=== PATIENT | male | born 1945 | race Two or more races ===

== ENCOUNTER 2021-10-06 11:27 | Inpatient (IN) | payer BC, OTHER ==
[~2021-10-06] VITALS: Ht 177.8 cm; Wt 71.0 kg
[2021-10-06 12:13] LABS: Albumin 2.2 g/dL (3.4-5.0); Magnesium 2.4 mg/dL (1.6-2.6); Potassium 3.8 mmol/L (3.5-5.1)
[2021-10-06 12:25] LABS: Basophils # (auto) 0 10 ^3/uL (0-0.2); Eosinophils # (auto) 0 10 ^3/uL (0-0.8); Hematocrit 20.6 % (41.0-53.0); Mean Corpuscular Volume 93.8 fL (80.0-100.0); Monocytes # (auto) 0.4 10 ^3/uL (0-1.3)
[2021-10-06 12:26] LABS: Basophils % (auto) 0.2 % (0.0-2.0); Eosinophils % (auto) 0.1 % (0.0-7.0); Hemoglobin 7.2 g/dL (13.5-17.5); Lymphocytes # (auto) 0.8 10 ^3/uL (0.4-5.4); Mean Corpuscular Hemoglobin 32.6 pg (28.0-32.0); Mean Corpuscular Hgb Conc. 34.8 g/dL (32.0-36.0); Monocytes % (auto) 7.3 % (0.0-12.0); Neutrophils # (auto) 4.4 10 ^3/uL (1.6-8.6); Neutrophils % (auto) 78.4 % (37.0-80.0); Nucleated Red Blood Cells % 0.2 %; Red Cell Distribution Width 16.5 % (11.8-14.3); White Blood Cell 5.6 10^3/uL (4.4-10.8)
[2021-10-06 12:27] LABS: Bilirubin, Total 0.6 mg/dL (0.2-1.0); Total Protein 12.5 g/dL (6.4-8.2)
[2021-10-06 12:30] LABS: Calcium 13.2 mg/dL (8.5-10.1)
[2021-10-06] MEDS ORDERED: ASPirin 81 mg TAB PO ONE (12:45)
[2021-10-06] MEDS ORDERED: LACTATED RINGER'S 1,000 ML IV ONE (12:45)
[2021-10-06] MEDS ORDERED: MORPHINE SULFATE INJ 2 MG/ml SYRG IV ONE (15:00)
[2021-10-06] MEDS ORDERED: MORPHINE SULFATE INJ 2 MG/ml SYRG IV PRN (15:15)
[2021-10-06] MEDS ORDERED: NITROGLYCERIN 0.4 MG SL TAB SL PRN (15:15)
[2021-10-06] MEDS ORDERED: SODIUM CHLORIDE 0.9% 2,000 ML IV ONE (15:30)
[2021-10-06] MEDS ORDERED: SODIUM CHLORIDE 0.9% 1,000 ML IV ONE (15:30)
[2021-10-06] MEDS ORDERED: DOCUSATE SOD 100 MG CAP PO PRN (15:45)
[2021-10-06 15:46] LABS: Cholesterol 148 mg/dL (< 200)
[2021-10-06 15:48] LABS: HDL Cholesterol 44 mg/dL (40-59); LDL Cholesterol 105 mg/dL (< 100); Triglycerides 102 mg/dL (< 150)
[2021-10-06 16:05] LABS: INR 1.09 (0.9-1.15)
[2021-10-06] MEDS: SODIUM CHLORIDE 0.9% 1,000 ML IV SCH (16:21)
[2021-10-06 18:30] VITALS: BP 130/51
[2021-10-06 19:48] LABS: Phosphorus 4.9 mg/dL (2.5-4.90)
[2021-10-06 22:00] VITALS: BP 108/51
[2021-10-06] MEDS: CALCITONIN 400unit/2ml Vial (200unit/ml) SC SCH (22:00)
[2021-10-06 22:19] VITALS: BP 106/61
[2021-10-06 22:38] VITALS: BP 102/61
[2021-10-06] MEDS: HYDROcodone-ACET 5/325MG TAB PO PRN (22:49)
[2021-10-07] VITALS (7 sets, daily range): BP systolic 103–126; BP diastolic 54–71
[2021-10-07] MEDS: SODIUM CHLORIDE 0.9% 1,000 ML IV SCH ×4 (00:05→21:15)
[2021-10-07 05:26] LABS: Basophils # (auto) 0 10 ^3/uL (0-0.2); Eosinophils # (auto) 0 10 ^3/uL (0-0.8); Lymphocytes # (auto) 0.6 10 ^3/uL (0.4-5.4); Mean Corpuscular Volume 92.1 fL (80.0-100.0); Monocytes # (auto) 0.2 10 ^3/uL (0-1.3); White Blood Cell 3.8 10^3/uL (4.4-10.8)
[2021-10-07 05:29] LABS: Basophils % (auto) 0.1 % (0.0-2.0); Eosinophils % (auto) 0.4 % (0.0-7.0); Lymphocytes % (auto) 16.8 % (10.0-50.0); Mean Corpuscular Hgb Conc. 34.8 g/dL (32.0-36.0); Monocytes % (auto) 5.7 % (0.0-12.0); Nucleated Red Blood Cells % 0.2 %; Red Blood Cells 2.49 10^6/uL (4.5-5.90)
[2021-10-07 05:42] LABS: Calcium 12.3 mg/dL (8.5-10.1); Potassium 3.7 mmol/L (3.5-5.1)
[2021-10-07 05:46] LABS: BUN/Creatinine Ratio 17.7; Bilirubin, Total 0.6 mg/dL (0.2-1.0); Total Protein 11.8 g/dL (6.4-8.2)
[2021-10-07] MEDS ORDERED: ENOXAPARIN SOD 30 MG/0.3 ML SYRINGE SC SCH (10:00)
[2021-10-07] MEDS: CALCITONIN 400unit/2ml Vial (200unit/ml) SC SCH ×2 (13:14→22:03)
[2021-10-07] MEDS ORDERED: LIDOCAINE HCL 2% TOP JELLY 5ML TOP ONE (13:15)
[2021-10-07] MEDS ORDERED: ENOXAPARIN SOD 60 MG/0.6 ML SYRINGE SC SCH (22:00)
[2021-10-07] MEDS: HYDROcodone-ACET 5/325MG TAB PO PRN (22:02)
[2021-10-08] MEDS: SODIUM CHLORIDE 0.9% 1,000 ML IV SCH ×4 (01:19→22:27)
[2021-10-08] MEDS: ONDANSETRON HCL 4 MG/2 ML VIAL IV PRN ×2 (03:09→17:25)
[2021-10-08 05:00] VITALS: BP_SYST 108; BP_SYST 146; BP_DIAS 36; BP_DIAS 69
[2021-10-08 05:59] LABS: Albumin 1.9 g/dL (3.4-5.0); BUN/Creatinine Ratio 22.3; Calcium 11.1 mg/dL (8.5-10.1); Phosphorus 4.2 mg/dL (2.5-4.90); Potassium 3.7 mmol/L (3.5-5.1)
[2021-10-08 07:06] LABS: Immunoglobulin G, Serum 7669 mg/dL (603-1613)
[2021-10-08 08:30] VITALS: BP 110/67
[2021-10-08] MEDS ORDERED: ENOXAPARIN SOD 60 MG/0.6 ML SYRINGE SC SCH (10:00)
[2021-10-08 11:18] LABS: Potassium 3.8 mmol/L (3.5-5.1)
[2021-10-08 11:29] LABS: Albumin 1.9 g/dL (3.4-5.0); BUN/Creatinine Ratio 21.4; Bilirubin, Total 0.4 mg/dL (0.2-1.0); Calcium 11.4 mg/dL (8.5-10.1)
[2021-10-08 12:31] LABS: Basophils # (auto) 0 10 ^3/uL (0-0.2); Basophils % (auto) 0.2 % (0.0-2.0); Eosinophils # (auto) 0 10 ^3/uL (0-0.8); Hemoglobin 8.2 g/dL (13.5-17.5); Lymphocytes # (auto) 0.7 10 ^3/uL (0.4-5.4); Lymphocytes % (auto) 14.2 % (10.0-50.0); Monocytes # (auto) 0.3 10 ^3/uL (0-1.3); White Blood Cell 4.6 10^3/uL (4.4-10.8)
[2021-10-08 12:32] LABS: Eosinophils % (auto) 0.2 % (0.0-7.0); Hematocrit 24.6 % (41.0-53.0); Mean Corpuscular Hemoglobin 30.9 pg (28.0-32.0); Mean Corpuscular Hgb Conc. 33.4 g/dL (32.0-36.0); Mean Corpuscular Volume 92.6 fL (80.0-100.0); Monocytes % (auto) 5.9 % (0.0-12.0); Neutrophils # (auto) 3.7 10 ^3/uL (1.6-8.6); Neutrophils % (auto) 79.5 % (37.0-80.0); Nucleated Red Blood Cells % 0.3 %; Red Blood Cells 2.66 10^6/uL (4.5-5.90); Red Cell Distribution Width 15.9 % (11.8-14.3)
[2021-10-08 13:30] VITALS: BP 110/70
[2021-10-08] MEDS: CALCITONIN 400unit/2ml Vial (200unit/ml) SC SCH ×2 (15:14→21:58)
[2021-10-08 15:34] LABS: Urine Amorphous Crystal FEW /hpf (None Seen); Urine Bacteria MOD /hpf (None Seen); Urine Blood 3+ /uL (Negative); Urine Mucus FEW (None Seen); Urine Specific Gravity 1.016 (1.001-1.035); Urine WBC 227 /hpf (0 - 3)
[2021-10-08 16:15] LABS: Alcohol, Urine < 3.0 mg/dL (0-10); Amphetamine Screen, Urine NEGATIVE (NEGATIVE); Barbiturate Scree,Urine NEGATIVE (NEGATIVE); Benzodiazephine Screen, Urine NEGATIVE (NEGATIVE); Cannabinoid Screen, Urine NEGATIVE (NEGATIVE); Cocaine Screen, Urine NEGATIVE (NEGATIVE); Opiate Scree,Urine NEGATIVE (NEGATIVE); Phencyclidine Screen, Urine NEGATIVE (NEGATIVE)
[2021-10-08 16:30] VITALS: BP 119/60
[2021-10-08] MEDS ORDERED: cefTRIAXone 1GM/50ML D5W 50 ML IV ONE (16:30)
[2021-10-08 18:57] LABS: Basophils # (auto) 0 10 ^3/uL (0-0.2); Basophils % (auto) 0.3 % (0.0-2.0); Eosinophils # (auto) 0 10 ^3/uL (0-0.8); Eosinophils % (auto) 0.2 % (0.0-7.0); Hemoglobin 8.3 g/dL (13.5-17.5); Lymphocytes # (auto) 0.4 10 ^3/uL (0.4-5.4); Lymphocytes % (auto) 11.8 % (10.0-50.0); Mean Corpuscular Hemoglobin 30.8 pg (28.0-32.0); Mean Corpuscular Volume 93.3 fL (80.0-100.0); Monocytes # (auto) 0.2 10 ^3/uL (0-1.3); Neutrophils # (auto) 3.1 10 ^3/uL (1.6-8.6); Neutrophils % (auto) 81.7 % (37.0-80.0); Nucleated Red Blood Cells % 0.2 %; Red Blood Cells 2.68 10^6/uL (4.5-5.90); Red Cell Distribution Width 15.9 % (11.8-14.3); White Blood Cell 3.8 10^3/uL (4.4-10.8)
[2021-10-08 19:07] LABS: BUN/Creatinine Ratio 23.4; INR 1.15 (0.9-1.15); Partial Thromboplastin Time 26.8 sec (24.6-33.4); Potassium 3.5 mmol/L (3.5-5.1)
[2021-10-08] MEDS: PANTOPRAZOLE 40 MG/10 ML VIAL INJ IV SCH (21:57)
[2021-10-08] MEDS: SUCRALFATE 1 GM/10 ML ORAL SUSP PO SCH (21:57)
[2021-10-08 22:00] VITALS: BP 104/60
[2021-10-09 05:00] VITALS: BP 103/61
[2021-10-09] MEDS: SODIUM CHLORIDE 0.9% 1,000 ML IV SCH ×3 (06:15→18:00)
[2021-10-09 06:18] LABS: Basophils # (auto) 0 10 ^3/uL (0-0.2); Eosinophils # (auto) 0 10 ^3/uL (0-0.8); Hemoglobin 7.7 g/dL (13.5-17.5); Lymphocytes # (auto) 0.7 10 ^3/uL (0.4-5.4); Mean Corpuscular Hemoglobin 31.6 pg (28.0-32.0); Monocytes # (auto) 0.3 10 ^3/uL (0-1.3)
[2021-10-09 06:26] LABS: Basophils % (auto) 0.2 % (0.0-2.0); Eosinophils % (auto) 0.2 % (0.0-7.0); Hematocrit 22.7 % (41.0-53.0); Lymphocytes % (auto) 17.3 % (10.0-50.0); Mean Corpuscular Hgb Conc. 33.7 g/dL (32.0-36.0); Mean Corpuscular Volume 93.8 fL (80.0-100.0); Monocytes % (auto) 6.7 % (0.0-12.0); Neutrophils % (auto) 75.6 % (37.0-80.0); Nucleated Red Blood Cells % 0.2 %; Red Blood Cells 2.42 10^6/uL (4.5-5.90); Red Cell Distribution Width 16.1 % (11.8-14.3); White Blood Cell 3.9 10^3/uL (4.4-10.8)
[2021-10-09 06:35] LABS: Albumin 1.7 g/dL (3.4-5.0); Calcium 10.9 mg/dL (8.5-10.1); Potassium 3.5 mmol/L (3.5-5.1)
[2021-10-09 06:38] LABS: BUN/Creatinine Ratio 25.8
[2021-10-09 06:43] LABS: Bilirubin, Total 0.3 mg/dL (0.2-1.0); Total Protein 9.9 g/dL (6.4-8.2)
[2021-10-09] MEDS: SUCRALFATE 1 GM/10 ML ORAL SUSP PO SCH ×4 (06:58→22:00)
[2021-10-09 09:16] VITALS: BP 121/72
[2021-10-09] MEDS: cefTRIAXone 1GM/50ML D5W 50 ML IV SCH (09:52)
[2021-10-09] MEDS: PANTOPRAZOLE 40 MG/10 ML VIAL INJ IV SCH ×2 (09:55→22:00)
[2021-10-09] MEDS: CALCITONIN 400unit/2ml Vial (200unit/ml) SC SCH (10:31)
[2021-10-09 12:53] VITALS: BP 113/72
[2021-10-09 17:04] VITALS: BP 114/62
[2021-10-09 22:00] VITALS: BP 113/68
[2021-10-10] MEDS: SODIUM CHLORIDE 0.9% 1,000 ML IV SCH ×4 (00:46→18:30)
[2021-10-10 05:00] VITALS: BP 101/65
[2021-10-10] MEDS: SUCRALFATE 1 GM/10 ML ORAL SUSP PO SCH ×4 (06:11→21:31)
[2021-10-10 06:51] LABS: Basophils # (auto) 0 10 ^3/uL (0-0.2); Eosinophils # (auto) 0 10 ^3/uL (0-0.8); Hemoglobin 7.1 g/dL (13.5-17.5); Monocytes # (auto) 0.3 10 ^3/uL (0-1.3); Neutrophils # (auto) 2.7 10 ^3/uL (1.6-8.6); Neutrophils % (auto) 73.8 % (37.0-80.0)
[2021-10-10 06:54] LABS: Basophils % (auto) 0.3 % (0.0-2.0); Hematocrit 20.8 % (41.0-53.0); Lymphocytes # (auto) 0.6 10 ^3/uL (0.4-5.4); Lymphocytes % (auto) 17.7 % (10.0-50.0); Mean Corpuscular Hemoglobin 31.6 pg (28.0-32.0); Mean Corpuscular Hgb Conc. 33.9 g/dL (32.0-36.0); Mean Corpuscular Volume 93.2 fL (80.0-100.0); Monocytes % (auto) 7.2 % (0.0-12.0); Nucleated Red Blood Cells % 0.3 %; Red Blood Cells 2.24 10^6/uL (4.5-5.90); Red Cell Distribution Width 16.4 % (11.8-14.3); White Blood Cell 3.6 10^3/uL (4.4-10.8)
[2021-10-10 06:57] LABS: Albumin 1.5 g/dL (3.4-5.0); BUN/Creatinine Ratio 23.7; Bilirubin, Total 0.4 mg/dL (0.2-1.0); Total Protein 9.3 g/dL (6.4-8.2)
[2021-10-10 08:46] VITALS: BP 117/71
[2021-10-10] MEDS: cefTRIAXone 1GM/50ML D5W 50 ML IV SCH (09:39)
[2021-10-10] MEDS ORDERED: POTASSIUM CHL 20 Meq TABLET PO ONE ×2 (09:45)
[2021-10-10] MEDS: PANTOPRAZOLE 40 MG/10 ML VIAL INJ IV SCH ×2 (10:22→21:31)
[2021-10-10 12:42] VITALS: BP 133/71
[2021-10-10 16:43] VITALS: BP 124/69
[2021-10-10 20:30] VITALS: BP 117/72
[2021-10-10 21:34] VITALS: BP 117/72
[2021-10-11 04:48] VITALS: BP 113/66
[2021-10-11 05:35] LABS: Albumin 1.5 g/dL (3.4-5.0); Calcium 10.1 mg/dL (8.5-10.1)
[2021-10-11 05:38] LABS: BUN/Creatinine Ratio 19.8; Bilirubin, Total 0.3 mg/dL (0.2-1.0); Total Protein 8.8 g/dL (6.4-8.2)
[2021-10-11] MEDS: SUCRALFATE 1 GM/10 ML ORAL SUSP PO SCH ×4 (06:11→22:40)
[2021-10-11] MEDS: cefTRIAXone 1GM/50ML D5W 50 ML IV SCH (08:45)
[2021-10-11] MEDS: PANTOPRAZOLE 40 MG/10 ML VIAL INJ IV SCH ×2 (08:46→22:40)
[2021-10-11] MEDS: POTASSIUM CHL 20 Meq TABLET PO SCH (08:46)
[2021-10-11 09:00] VITALS: BP 119/67
[2021-10-11 11:05] LABS: Basophils # (auto) 0 10 ^3/uL (0-0.2); Basophils % (auto) 0.7 % (0.0-2.0); Eosinophils # (auto) 0 10 ^3/uL (0-0.8); Eosinophils % (auto) 1.3 % (0.0-7.0); Hematocrit 24.4 % (41.0-53.0); Hemoglobin 8.1 g/dL (13.5-17.5); Lymphocytes # (auto) 0.8 10 ^3/uL (0.4-5.4); Lymphocytes % (auto) 22.6 % (10.0-50.0); Mean Corpuscular Hemoglobin 30.9 pg (28.0-32.0); Mean Corpuscular Hgb Conc. 33.3 g/dL (32.0-36.0); Mean Corpuscular Volume 92.7 fL (80.0-100.0); Monocytes # (auto) 0.3 10 ^3/uL (0-1.3); Monocytes % (auto) 8.8 % (0.0-12.0); Neutrophils # (auto) 2.5 10 ^3/uL (1.6-8.6); Neutrophils % (auto) 66.6 % (37.0-80.0); Nucleated Red Blood Cells % 0.1 %; Red Blood Cells 2.63 10^6/uL (4.5-5.90); Red Cell Distribution Width 16.2 % (11.8-14.3); White Blood Cell 3.7 10^3/uL (4.4-10.8)
[2021-10-11 13:00] VITALS: BP 101/56
[2021-10-11] MEDS: SODIUM CHLORIDE 0.9% 1,000 ML IV SCH ×3 (13:15→22:39)
[2021-10-11 17:00] VITALS: BP 121/65
[2021-10-11 22:00] VITALS: BP 126/67
[2021-10-12] VITALS (11 sets, daily range): BP systolic 123–148; BP diastolic 68–84
[2021-10-12] MEDS: SODIUM CHLORIDE 0.9% 1,000 ML IV SCH ×3 (06:13→21:15)
[2021-10-12] MEDS: SUCRALFATE 1 GM/10 ML ORAL SUSP PO SCH ×3 (06:13→22:15)
[2021-10-12 06:59] LABS: Basophils # (auto) 0 10 ^3/uL (0-0.2); Basophils % (auto) 0.6 % (0.0-2.0); Eosinophils # (auto) 0 10 ^3/uL (0-0.8); Eosinophils % (auto) 1.2 % (0.0-7.0); Lymphocytes # (auto) 0.7 10 ^3/uL (0.4-5.4); Lymphocytes % (auto) 18.6 % (10.0-50.0); Mean Corpuscular Hemoglobin 31.1 pg (28.0-32.0); Mean Corpuscular Volume 94.2 fL (80.0-100.0); Monocytes # (auto) 0.3 10 ^3/uL (0-1.3); Monocytes % (auto) 7.7 % (0.0-12.0); Neutrophils # (auto) 2.6 10 ^3/uL (1.6-8.6); Neutrophils % (auto) 71.9 % (37.0-80.0); Nucleated Red Blood Cells % 0.2 %; Red Blood Cells 2.12 10^6/uL (4.5-5.90); Red Cell Distribution Width 16.1 % (11.8-14.3); White Blood Cell 3.6 10^3/uL (4.4-10.8)
[2021-10-12 07:13] LABS: Calcium 10.9 mg/dL (8.5-10.1); Potassium 3.3 mmol/L (3.5-5.1)
[2021-10-12 07:15] LABS: BUN/Creatinine Ratio 15.8
[2021-10-12 07:25] LABS: Hemoglobin 6.6 g/dL (13.5-17.5)
[2021-10-12] MEDS ORDERED: IODIXANOL 320MG/ML 100ML BTL IV ONE (07:46)
[2021-10-12] MEDS ORDERED: LIDOCAINE 2%HCL (LOCAL ANESTH.) INJ 20ML MDV ONE (07:47)
[2021-10-12] MEDS ORDERED: POTASSIUM CHLORIDE 40 MEQ, LIDOCAINE 1% (LOCAL ANESTH.) 4 ML in SODIUM CHL 0.9% 250 ML IV ONE (08:15)
[2021-10-12] MEDS ORDERED: fentaNYL CITRATE 100 MCG/2 ML VL ONE ×2 (09:00→12:24)
[2021-10-12] MEDS: cefTRIAXone 1GM/50ML D5W 50 ML IV SCH (09:00)
[2021-10-12] MEDS ORDERED: MIDAZOLAM HCL 2MG/2ML 2ml VIAL (1mg/ml) ONE ×2 (09:01→12:24)
[2021-10-12] MEDS: POTASSIUM CHL 20 Meq TABLET PO SCH (10:00)
[2021-10-12] MEDS ORDERED: ceFAZolin 1GM/50ML 100 ML IV ONE (12:22)
[2021-10-12] MEDS ORDERED: MEPERIDINE HCL (25 MG/ML) 1ML VIAL ONE (12:24)
[2021-10-12] MEDS ORDERED: MIDAZOLAM HCL 2MG/2ML 2ml VIAL (1mg/ml) IV PRN (12:45)
[2021-10-12] MEDS ORDERED: MORPHINE SULFATE 4 MG/ML SYR/VIAL IV PRN (12:45)
[2021-10-12] MEDS ORDERED: ePHEDrine SULFATE 50 MG/ML AMP IV PRN (12:45)
[2021-10-12] MEDS ORDERED: LABETALOL HCL 5 MG/ML 4ML SYRINGE IV PRN (12:45)
[2021-10-12] MEDS ORDERED: HYDROmorphone HCL 2 MG/ML VL/or syr IV PRN (12:45)
[2021-10-12] MEDS ORDERED: ONDANSETRON HCL 4 MG/2 ML VIAL IV PRN (12:45)
[2021-10-12] MEDS ORDERED: PROPOFOL 10 MG/ML 20 ML IV ONE (13:19)
[2021-10-12] MEDS ORDERED: DexAMETHasone SOD PHOS 10MG/1ML VIAL INJ ONE (13:19)
[2021-10-12] MEDS: PANTOPRAZOLE 40 MG/10 ML VIAL INJ IV SCH ×2 (15:11→22:15)
[2021-10-13] VITALS (11 sets, daily range): BP systolic 115–135; BP diastolic 64–82
[2021-10-13] MEDS: SODIUM CHLORIDE 0.9% 1,000 ML IV SCH ×3 (05:15→21:20)
[2021-10-13 06:16] LABS: Basophils # (auto) 0 10 ^3/uL (0-0.2); Eosinophils # (auto) 0 10 ^3/uL (0-0.8); Eosinophils % (auto) 0.3 % (0.0-7.0); Hemoglobin 7.6 g/dL (13.5-17.5); Lymphocytes # (auto) 0.7 10 ^3/uL (0.4-5.4); Monocytes # (auto) 0.3 10 ^3/uL (0-1.3); White Blood Cell 4.8 10^3/uL (4.4-10.8)
[2021-10-13 06:19] LABS: Basophils % (auto) 0.2 % (0.0-2.0); Hematocrit 21.7 % (41.0-53.0); Lymphocytes % (auto) 13.5 % (10.0-50.0); Mean Corpuscular Hemoglobin 31.6 pg (28.0-32.0); Mean Corpuscular Hgb Conc. 34.7 g/dL (32.0-36.0); Mean Corpuscular Volume 91.1 fL (80.0-100.0); Monocytes % (auto) 7.1 % (0.0-12.0); Neutrophils # (auto) 3.8 10 ^3/uL (1.6-8.6); Neutrophils % (auto) 78.9 % (37.0-80.0); Nucleated Red Blood Cells % 0.2 %; Red Blood Cells 2.39 10^6/uL (4.5-5.90); Red Cell Distribution Width 16.8 % (11.8-14.3)
[2021-10-13 06:32] LABS: Albumin 1.3 g/dL (3.4-5.0); Calcium 11.3 mg/dL (8.5-10.1); Potassium 3.3 mmol/L (3.5-5.1)
[2021-10-13 06:35] LABS: BUN/Creatinine Ratio 13.3
[2021-10-13 06:37] LABS: Bilirubin, Total 0.3 mg/dL (0.2-1.0); Total Protein 8.7 g/dL (6.4-8.2)
[2021-10-13] MEDS: SUCRALFATE 1 GM/10 ML ORAL SUSP PO SCH ×4 (06:55→21:30)
[2021-10-13] MEDS: PANTOPRAZOLE 40 MG/10 ML VIAL INJ IV SCH ×2 (09:46→21:30)
[2021-10-13] MEDS: cefTRIAXone 1GM/50ML D5W 50 ML IV SCH (09:46)
[2021-10-13] MEDS: POTASSIUM CHL 20 Meq TABLET PO SCH (09:58)
[2021-10-13] MEDS: MORPHINE SULFATE INJ 2 MG/ml SYRG IV PRN (14:06)
[2021-10-14] MEDS: ACETAMINOPHEN 325 MG TAB PO PRN (02:57)
[2021-10-14 05:00] VITALS: BP 130/79
[2021-10-14] MEDS: SODIUM CHLORIDE 0.9% 1,000 ML IV SCH ×2 (06:36→15:12)
[2021-10-14] MEDS: SUCRALFATE 1 GM/10 ML ORAL SUSP PO SCH ×4 (06:36→21:48)
[2021-10-14 08:15] VITALS: BP 143/80
[2021-10-14 08:44] VITALS: BP 143/80
[2021-10-14] MEDS: cefTRIAXone 1GM/50ML D5W 50 ML IV SCH (09:39)
[2021-10-14 10:03] LABS: Basophils # (auto) 0 10 ^3/uL (0-0.2); Eosinophils # (auto) 0.1 10 ^3/uL (0-0.8); Hematocrit 22.1 % (41.0-53.0); Lymphocytes # (auto) 0.8 10 ^3/uL (0.4-5.4); Monocytes # (auto) 0.3 10 ^3/uL (0-1.3); Nucleated Red Blood Cells % 0.1 %; Red Blood Cells 2.39 10^6/uL (4.5-5.90)
[2021-10-14 10:05] LABS: Basophils % (auto) 0.3 % (0.0-2.0); Eosinophils % (auto) 1.4 % (0.0-7.0); Hemoglobin 7.4 g/dL (13.5-17.5); Lymphocytes % (auto) 16.8 % (10.0-50.0); Mean Corpuscular Hemoglobin 30.9 pg (28.0-32.0); Mean Corpuscular Hgb Conc. 33.5 g/dL (32.0-36.0); Mean Corpuscular Volume 92.4 fL (80.0-100.0); Monocytes % (auto) 5.9 % (0.0-12.0); Neutrophils # (auto) 3.4 10 ^3/uL (1.6-8.6); Neutrophils % (auto) 75.6 % (37.0-80.0); Red Cell Distribution Width 16.9 % (11.8-14.3); White Blood Cell 4.5 10^3/uL (4.4-10.8)
[2021-10-14] MEDS: PANTOPRAZOLE 40 MG/10 ML VIAL INJ IV SCH ×2 (10:20→21:49)
[2021-10-14] MEDS: POTASSIUM CHL 20 Meq TABLET PO SCH (10:20)
[2021-10-14 10:21] LABS: Albumin 1.4 g/dL (3.4-5.0); Calcium 10.9 mg/dL (8.5-10.1); Potassium 3.3 mmol/L (3.5-5.1)
[2021-10-14 10:25] LABS: BUN/Creatinine Ratio 13.2; Bilirubin, Total 0.5 mg/dL (0.2-1.0); Total Protein 8.7 g/dL (6.4-8.2)
[2021-10-14] MEDS: POTASSIUM CHL 20MEQ/100ML 100 ML IV SCH ×2 (11:23→13:35)
[2021-10-14] MEDS: HYDROcodone-ACET 5/325MG TAB PO PRN ×2 (11:27→17:44)
[2021-10-14 13:21] VITALS: BP 145/82
[2021-10-14 17:01] VITALS: BP 138/76
[2021-10-14 22:00] VITALS: BP 145/76
[2021-10-15] VITALS (11 sets, daily range): BP systolic 103–123; BP diastolic 53–98
[2021-10-15] MEDS: SODIUM CHLORIDE 0.9% 1,000 ML IV SCH ×4 (00:28→22:01)
[2021-10-15] MEDS ORDERED: LABETALOL HCL 5 MG/ML 4ML SYRINGE IV ONE (01:00)
[2021-10-15] MEDS ORDERED: dilTIAZem 25 MG/5 ML VIAL IV ONE (01:00)
[2021-10-15 05:28] LABS: Basophils # (auto) 0 10 ^3/uL (0-0.2); Eosinophils # (auto) 0 10 ^3/uL (0-0.8); Lymphocytes # (auto) 0.3 10 ^3/uL (0.4-5.4); Monocytes # (auto) 0.2 10 ^3/uL (0-1.3); White Blood Cell 5.8 10^3/uL (4.4-10.8)
[2021-10-15 05:30] LABS: Basophils % (auto) 0.1 % (0.0-2.0); Eosinophils % (auto) 0.2 % (0.0-7.0); Hematocrit 20.3 % (41.0-53.0); Lymphocytes % (auto) 4.9 % (10.0-50.0); Mean Corpuscular Hemoglobin 31.9 pg (28.0-32.0); Mean Corpuscular Hgb Conc. 34.5 g/dL (32.0-36.0); Mean Corpuscular Volume 92.5 fL (80.0-100.0); Neutrophils # (auto) 5.2 10 ^3/uL (1.6-8.6); Neutrophils % (auto) 90.8 % (37.0-80.0); Red Blood Cells 2.19 10^6/uL (4.5-5.90); Red Cell Distribution Width 16.9 % (11.8-14.3)
[2021-10-15 05:45] LABS: Potassium 3.4 mmol/L (3.5-5.1)
[2021-10-15 05:54] LABS: Albumin 1.3 g/dL (3.4-5.0); BUN/Creatinine Ratio 13.2; Calcium 11.4 mg/dL (8.5-10.1)
[2021-10-15 05:56] LABS: Bilirubin, Total 0.4 mg/dL (0.2-1.0); Total Protein 8.3 g/dL (6.4-8.2)
[2021-10-15] MEDS: SUCRALFATE 1 GM/10 ML ORAL SUSP PO SCH ×4 (07:14→22:07)
[2021-10-15] MEDS: cefTRIAXone 1GM/50ML D5W 50 ML IV SCH (08:47)
[2021-10-15] MEDS: POTASSIUM CHL 20 Meq TABLET PO SCH (09:39)
[2021-10-15] MEDS: PANTOPRAZOLE 40 MG/10 ML VIAL INJ IV SCH ×2 (09:39→22:07)
[2021-10-15] MEDS: HYDROcodone-ACET 5/325MG TAB PO PRN (16:08)
[2021-10-15] MEDS: MORPHINE SULFATE INJ 2 MG/ml SYRG IV PRN (18:23)
[2021-10-16 05:30] VITALS: BP 137/71
[2021-10-16] MEDS: SODIUM CHLORIDE 0.9% 1,000 ML IV SCH ×3 (05:31→22:36)
[2021-10-16] MEDS: SUCRALFATE 1 GM/10 ML ORAL SUSP PO SCH ×4 (06:24→22:30)
[2021-10-16 07:01] LABS: Basophils # (auto) 0 10 ^3/uL (0-0.2); Basophils % (auto) 0.3 % (0.0-2.0); Eosinophils # (auto) 0 10 ^3/uL (0-0.8); Eosinophils % (auto) 0.6 % (0.0-7.0); Hematocrit 25.1 % (41.0-53.0); Hemoglobin 8.3 g/dL (13.5-17.5); Lymphocytes # (auto) 0.6 10 ^3/uL (0.4-5.4); Lymphocytes % (auto) 10.1 % (10.0-50.0); Mean Corpuscular Hgb Conc. 33.1 g/dL (32.0-36.0); Monocytes # (auto) 0.3 10 ^3/uL (0-1.3); Nucleated Red Blood Cells % 0.1 %; White Blood Cell 5.9 10^3/uL (4.4-10.8)
[2021-10-16 07:04] LABS: Mean Corpuscular Hemoglobin 30.6 pg (28.0-32.0); Mean Corpuscular Volume 92.6 fL (80.0-100.0); Monocytes % (auto) 4.7 % (0.0-12.0); Neutrophils % (auto) 84.3 % (37.0-80.0); Red Blood Cells 2.71 10^6/uL (4.5-5.90); Red Cell Distribution Width 17.1 % (11.8-14.3)
[2021-10-16 09:06] VITALS: BP 144/76
[2021-10-16] MEDS: cefTRIAXone 1GM/50ML D5W 50 ML IV SCH (10:35)
[2021-10-16] MEDS: POTASSIUM CHL 20 Meq TABLET PO SCH (10:35)
[2021-10-16] MEDS: PANTOPRAZOLE 40 MG/10 ML VIAL INJ IV SCH ×2 (10:35→22:30)
[2021-10-16 13:00] VITALS: BP 138/74
[2021-10-16 16:57] VITALS: BP 152/88
[2021-10-16] MEDS: LACTULOSE 20Gm/30ML SOLN PO PRN (22:30)
[2021-10-17 04:20] LABS: Basophils # (auto) 0 10 ^3/uL (0-0.2); Eosinophils # (auto) 0 10 ^3/uL (0-0.8); Monocytes # (auto) 0.3 10 ^3/uL (0-1.3); Neutrophils # (auto) 4.7 10 ^3/uL (1.6-8.6); White Blood Cell 5.6 10^3/uL (4.4-10.8)
[2021-10-17 04:22] LABS: Basophils % (auto) 0.4 % (0.0-2.0); Eosinophils % (auto) 0.6 % (0.0-7.0); Hematocrit 23.3 % (41.0-53.0); Hemoglobin 7.9 g/dL (13.5-17.5); Lymphocytes # (auto) 0.6 10 ^3/uL (0.4-5.4); Lymphocytes % (auto) 10.1 % (10.0-50.0); Mean Corpuscular Hemoglobin 30.5 pg (28.0-32.0); Mean Corpuscular Hgb Conc. 33.9 g/dL (32.0-36.0); Mean Corpuscular Volume 90.2 fL (80.0-100.0); Monocytes % (auto) 5.2 % (0.0-12.0); Neutrophils % (auto) 83.7 % (37.0-80.0); Nucleated Red Blood Cells % 0.1 %; Red Blood Cells 2.58 10^6/uL (4.5-5.90); Red Cell Distribution Width 16.5 % (11.8-14.3)
[2021-10-17 04:40] LABS: Potassium 3.2 mmol/L (3.5-5.1)
[2021-10-17 04:50] LABS: Albumin 1.3 g/dL (3.4-5.0); Bilirubin, Total 0.3 mg/dL (0.2-1.0); Calcium 11.7 mg/dL (8.5-10.1); Total Protein 8.1 g/dL (6.4-8.2)
[2021-10-17 05:00] VITALS: BP 154/83
[2021-10-17] MEDS: SUCRALFATE 1 GM/10 ML ORAL SUSP PO SCH ×4 (06:38→21:39)
[2021-10-17] MEDS: SODIUM CHLORIDE 0.9% 1,000 ML IV SCH ×3 (06:46→21:15)
[2021-10-17 09:00] VITALS: BP 146/81
[2021-10-17] MEDS: cefTRIAXone 1GM/50ML D5W 50 ML IV SCH (09:15)
[2021-10-17] MEDS: LACTULOSE 20Gm/30ML SOLN PO PRN (09:16)
[2021-10-17] MEDS: PANTOPRAZOLE 40 MG/10 ML VIAL INJ IV SCH ×2 (09:16→21:39)
[2021-10-17] MEDS: POTASSIUM CHL 20 Meq TABLET PO SCH (09:16)
[2021-10-17 13:00] VITALS: BP 141/85
[2021-10-17] MEDS ORDERED: FUROSEMIDE 20 MG/2 ML VIAL IV ONE (13:15)
[2021-10-17 17:00] VITALS: BP 147/80
[2021-10-17] MEDS: FUROSEMIDE 20 MG/2 ML VIAL IV SCH (18:06)
[2021-10-17 22:00] VITALS: BP 150/80
[2021-10-18 05:00] VITALS: BP 147/77
[2021-10-18] MEDS: FUROSEMIDE 20 MG/2 ML VIAL IV SCH ×2 (06:02→18:13)
[2021-10-18] MEDS: SUCRALFATE 1 GM/10 ML ORAL SUSP PO SCH ×4 (06:02→21:32)
[2021-10-18] MEDS: SODIUM CHLORIDE 0.9% 1,000 ML IV SCH ×3 (06:03→21:36)
[2021-10-18 09:00] VITALS: BP 144/77
[2021-10-18] MEDS: cefTRIAXone 1GM/50ML D5W 50 ML IV SCH (09:17)
[2021-10-18] MEDS: PANTOPRAZOLE 40 MG/10 ML VIAL INJ IV SCH ×2 (09:17→21:32)
[2021-10-18] MEDS: POTASSIUM CHL 20 Meq TABLET PO SCH (09:18)
[2021-10-18 13:00] VITALS: BP 155/87
[2021-10-18] MEDS: ACETAMINOPHEN 325 MG TAB PO PRN (14:47)
[2021-10-18 17:00] VITALS: BP 143/77
[2021-10-18 22:00] VITALS: BP 114/59
[2021-10-19 05:00] VITALS: BP 147/81
[2021-10-19] MEDS: FUROSEMIDE 20 MG/2 ML VIAL IV SCH ×2 (06:00→18:23)
[2021-10-19 06:17] LABS: Basophils # (auto) 0 10 ^3/uL (0-0.2); Basophils % (auto) 0.8 % (0.0-2.0); Eosinophils # (auto) 0.1 10 ^3/uL (0-0.8); Eosinophils % (auto) 1.6 % (0.0-7.0); Hematocrit 25.5 % (41.0-53.0); Hemoglobin 8.7 g/dL (13.5-17.5); Lymphocytes # (auto) 0.8 10 ^3/uL (0.4-5.4); Lymphocytes % (auto) 16.9 % (10.0-50.0); Mean Corpuscular Hemoglobin 30.4 pg (28.0-32.0); Mean Corpuscular Hgb Conc. 34.2 g/dL (32.0-36.0); Mean Corpuscular Volume 88.9 fL (80.0-100.0); Monocytes # (auto) 0.3 10 ^3/uL (0-1.3); Monocytes % (auto) 6.9 % (0.0-12.0); Neutrophils # (auto) 3.7 10 ^3/uL (1.6-8.6); Neutrophils % (auto) 73.8 % (37.0-80.0); Nucleated Red Blood Cells % 0.1 %; Red Blood Cells 2.87 10^6/uL (4.5-5.90); Red Cell Distribution Width 16.1 % (11.8-14.3)
[2021-10-19 06:20] LABS: BUN/Creatinine Ratio 12.6; Calcium 11.4 mg/dL (8.5-10.1)
[2021-10-19] MEDS: SODIUM CHLORIDE 0.9% 1,000 ML IV SCH ×3 (06:20→21:35)
[2021-10-19] MEDS: SUCRALFATE 1 GM/10 ML ORAL SUSP PO SCH ×4 (06:22→21:35)
[2021-10-19 06:57] LABS: Potassium 2.9 mmol/L (3.5-5.1)
[2021-10-19] MEDS: POTASSIUM CHL 20MEQ/100ML 100 ML IV SCH ×2 (08:51→12:04)
[2021-10-19 09:00] VITALS: BP 139/71
[2021-10-19] MEDS: POTASSIUM CHL 20 Meq TABLET PO SCH (10:28)
[2021-10-19] MEDS: PANTOPRAZOLE 40 MG/10 ML VIAL INJ IV SCH ×2 (10:28→21:34)
[2021-10-19] MEDS: cefTRIAXone 1GM/50ML D5W 50 ML IV SCH (10:29)
[2021-10-19] MEDS ORDERED: FUROSEMIDE 20 MG/2 ML VIAL IV ONE (11:15)
[2021-10-19] MEDS ORDERED: LACTULOSE 20Gm/30ML SOLN PO ONE (11:45)
[2021-10-19] MEDS: LACTULOSE 20Gm/30ML SOLN PO PRN (12:02)
[2021-10-19 13:00] VITALS: BP 152/81
[2021-10-19 16:10] VITALS: BP 172/73
[2021-10-19 17:00] VITALS: BP 152/73
[2021-10-19] MEDS: ACETAMINOPHEN 325 MG TAB PO PRN (17:23)
[2021-10-19] MEDS: LACTULOSE 20Gm/30ML SOLN PO SCH (21:34)
[2021-10-19 22:00] VITALS: BP 138/73
[2021-10-20 05:00] VITALS: BP 149/87
[2021-10-20] MEDS: SODIUM CHLORIDE 0.9% 1,000 ML IV SCH ×3 (05:56→21:56)
[2021-10-20] MEDS: FUROSEMIDE 20 MG/2 ML VIAL IV SCH (06:56)
[2021-10-20] MEDS: SUCRALFATE 1 GM/10 ML ORAL SUSP PO SCH ×4 (06:56→21:56)
[2021-10-20 09:00] VITALS: BP 148/84
[2021-10-20] MEDS: cefTRIAXone 1GM/50ML D5W 50 ML IV SCH (09:45)
[2021-10-20] MEDS: PANTOPRAZOLE 40 MG/10 ML VIAL INJ IV SCH ×2 (09:45→21:56)
[2021-10-20] MEDS: POTASSIUM CHL 20 Meq TABLET PO SCH (09:54)
[2021-10-20] MEDS: LACTULOSE 20Gm/30ML SOLN PO SCH ×2 (09:56→21:56)
[2021-10-20 10:59] LABS: Basophils # (auto) 0 10 ^3/uL (0-0.2); Basophils % (auto) 0.6 % (0.0-2.0); Eosinophils # (auto) 0.1 10 ^3/uL (0-0.8); Eosinophils % (auto) 1.1 % (0.0-7.0); Hematocrit 26.9 % (41.0-53.0); Hemoglobin 9.1 g/dL (13.5-17.5); Lymphocytes # (auto) 0.7 10 ^3/uL (0.4-5.4); Lymphocytes % (auto) 14.2 % (10.0-50.0); Mean Corpuscular Hemoglobin 30.4 pg (28.0-32.0); Mean Corpuscular Hgb Conc. 33.8 g/dL (32.0-36.0); Monocytes # (auto) 0.3 10 ^3/uL (0-1.3); Monocytes % (auto) 6.4 % (0.0-12.0); Neutrophils # (auto) 3.7 10 ^3/uL (1.6-8.6); Neutrophils % (auto) 77.7 % (37.0-80.0); Red Blood Cells 2.99 10^6/uL (4.5-5.90); Red Cell Distribution Width 15.9 % (11.8-14.3); White Blood Cell 4.7 10^3/uL (4.4-10.8)
[2021-10-20 11:17] LABS: Albumin 1.3 g/dL (3.4-5.0); Calcium 11.7 mg/dL (8.5-10.1)
[2021-10-20 11:20] LABS: BUN/Creatinine Ratio 10.6; Bilirubin, Total 0.3 mg/dL (0.2-1.0); Total Protein 8.6 g/dL (6.4-8.2)
[2021-10-20 11:30] LABS: Potassium 2.9 mmol/L (3.5-5.1)
[2021-10-20] MEDS: POTASSIUM CHL 20MEQ/100ML 100 ML IV SCH ×3 (11:55→17:18)
[2021-10-20 13:05] VITALS: BP 148/83
[2021-10-20] MEDS ORDERED: ZOLEDRONIC ACID 4 MG in SODIUM CHL 0.9% 100 ML IV ONE (15:00)
[2021-10-20 16:50] VITALS: BP 147/80
[2021-10-20 22:00] VITALS: BP 152/90
[2021-10-21] MEDS: SODIUM CHLORIDE 0.9% 1,000 ML IV SCH ×2 (03:31→13:15)
[2021-10-21 05:00] VITALS: BP 153/83
[2021-10-21] MEDS: FUROSEMIDE 20 MG/2 ML VIAL IV SCH ×2 (05:21→08:47)
[2021-10-21] MEDS: SUCRALFATE 1 GM/10 ML ORAL SUSP PO SCH ×3 (05:55→17:23)
[2021-10-21 06:22] LABS: BUN/Creatinine Ratio 11.6; Calcium 11.5 mg/dL (8.5-10.1); Potassium 3.2 mmol/L (3.5-5.1)
[2021-10-21] MEDS: cefTRIAXone 1GM/50ML D5W 50 ML IV SCH (08:46)
[2021-10-21] MEDS: LACTULOSE 20Gm/30ML SOLN PO SCH (08:47)
[2021-10-21] MEDS: PANTOPRAZOLE 40 MG/10 ML VIAL INJ IV SCH (08:47)
[2021-10-21] MEDS: POTASSIUM CHL 20 Meq TABLET PO SCH (08:47)
[2021-10-21 09:00] VITALS: BP 159/88
[2021-10-21] MEDS: ACETAMINOPHEN 325 MG TAB PO PRN (09:06)
[2021-10-21] MEDS ORDERED: FERR-7 PO (10:04)
[2021-10-21] MEDS ORDERED: DOCU-94 PO (10:04)
[2021-10-21] MEDS ORDERED: SUCR1TAB PO (10:04)
[2021-10-21] MEDS ORDERED: PANT40T PO (10:04)
[2021-10-21] MEDS ORDERED: FURO1TAB33 PO (10:04)
[2021-10-21] MEDS ORDERED: HYDR-4902 PO (10:04)
[2021-10-21] MEDS ORDERED: POTA10TA51 PO (10:04)
[2021-10-21] MEDS ORDERED: LACT10PA2 PO (10:04)
[2021-10-21] MEDS ORDERED: ONDA-144 PO (10:04)
[2021-10-21] MEDS ORDERED: APIX5TAB PO (10:12)
[2021-10-21 12:07] VITALS: BP 140/91
[2021-10-21 13:00] VITALS: BP 140/91
[2021-10-21 17:00] VITALS: BP 157/85
[2021-10-21 17:58] VITALS: BP 147/80
== END 2021-10-21 20:00 | disposition home or self-care (01) | DRG 840 ==
LOC: ER 11:27 → TELE 15:36 → TELE-CENTR 18:00
PROVIDERS: ADMIT Internal Medicine; ATTEND Family Medicine
PROC: 30233N1 Transfusion of Nonautologous Red Blood Cells into Peripheral Vein, Percutaneous Approach (ICD-10-PCS; 2021-10-06)
PROC: 06H03DZ Insertion of Intraluminal Device into Inferior Vena Cava, Percutaneous Approach (ICD-10-PCS; 2021-10-12)
PROC: 0TJB8ZZ Inspection of Bladder, Via Natural or Artificial Opening Endoscopic (ICD-10-PCS; principal; 2021-10-12 12:33)
PROC: 0DJ08ZZ Inspection of Upper Intestinal Tract, Via Natural or Artificial Opening Endoscopic (ICD-10-PCS; 2021-10-12 12:33)
PROC: 07DR3ZX Extraction of Iliac Bone Marrow, Percutaneous Approach, Diagnostic (ICD-10-PCS; 2021-10-13)
DX: C90.00 Multiple myeloma not having achieved remission (principal); E43 Unspecified severe protein-calorie malnutrition; I21.A1 Myocardial infarction type 2; I26.99 Other pulmonary embolism without acute cor pulmonale; I82.403 Acute embolism and thrombosis of unspecified deep veins of lower extremity, bilateral; E87.1 Hypo-osmolality and hyponatremia; N17.9 Acute kidney failure, unspecified; N13.8 Other obstructive and reflux uropathy; N13.30 Unspecified hydronephrosis; Z20.822 Contact with and (suspected) exposure to COVID-19; R62.7 Adult failure to thrive; E86.0 Dehydration; E83.52 Hypercalcemia; E88.09 Other disorders of plasma-protein metabolism, not elsewhere classified; F12.10 Cannabis abuse, uncomplicated; N18.9 Chronic kidney disease, unspecified; F10.10 Alcohol abuse, uncomplicated; D89.2 Hypergammaglobulinemia, unspecified; N40.1 Benign prostatic hyperplasia with lower urinary tract symptoms; K29.80 Duodenitis without bleeding; I25.10 Atherosclerotic heart disease of native coronary artery without angina pectoris; K25.9 Gastric ulcer, unspecified as acute or chronic, without hemorrhage or perforation; K29.70 Gastritis, unspecified, without bleeding; W18.39XA Other fall on same level, initial encounter; D64.9 Anemia, unspecified; E87.6 Hypokalemia; M41.9 Scoliosis, unspecified; R31.0 Gross hematuria; R33.8 Other retention of urine; Z87.891 Personal history of nicotine dependence; Z79.01 Long term (current) use of anticoagulants; Z95.828 Presence of other vascular implants and grafts; Y93.89 Activity, other specified; Y92.89 Other specified places as the place of occurrence of the external cause; Y99.8 Other external cause status; Z68.20 Body mass index [BMI] 20.0-20.9, adult
CPT/HCPCS: 10005; 36415; 36430; 37191; 70450; 71045; 71101; 72192; 74176; 76775; 77012; 77074; 78582; 80048; 80053; 80061; 80069; 80307; 81001; 82306; 82550; 82784; 83036; 83735; 83880; 83970; 84100; 84154; 84155; 84165; 84443; 84484; 85018; 85025; 85049; 85379; 85610; 85730; 86334; 86335; 86850; 86900; 86901; 86920; 87086; 87088; 87186; 93005; 93306; 93886; 93970; 96361; 96374; 97110; 97116; 97163; 97530; 99152; 99291; C9113; G0378; J0690; J0696; J1100; J2001; J2250; J2405; J2704; J3480; J3489; J3490; Q9967